=== PATIENT | male | born 1970 | race Caucasian/White ===

== ENCOUNTER 2017-05-07 01:15 | Emergency (ER) | payer SELFPAY ==
[~2017-05-07] VITALS: Ht 175.3 cm; Wt 72.6 kg
[~2017-05-07 01:15] MED LIST: CEPHALEXIN500 MG PO; NORCO 5-325 TA1 EACH PO
[2017-05-07] MEDS ORDERED: BACTRIM DS TAB1 EACH PO (01:34)
== END 2017-05-07 01:41 | disposition home or self-care (01) ==
LOC: ED 01:15
DX: L03.116 Cellulitis of left lower limb (principal); F17.200 Nicotine dependence, unspecified, uncomplicated
CPT/HCPCS: 99283

== ENCOUNTER 2019-12-04 07:39 | Day surgery (SDC) | payer OTHER ==
[~2019-12-04] VITALS: Ht 175.3 cm; Wt 72.1 kg
[~2019-12-04 07:39] MED LIST changes: +BACTRIM DS TAB1 EACH PO
--- NOTE | 2019-12-04 09:11 | NUR ---
12/04/19 0911 Shauna Wood 0905- PT ARRIVES TO PACU AROUSABLE TO VERBAL STIMULI, PT FALLS INSTANTLY BACK TO SLEEP WHEN NOT BEING TALKED TO. RESP EVEN AND UNLABORED. OXYGEN SAT HIGH 90'S TO 100% ON 3L VIA NC.
--- NOTE | 2019-12-04 11:58 | OR ---
[facility] [address], [place] [address] Signed DATE OF OPERATION: 12/04/2019 SURGEON: Ra Anderson MD PREOPERATIVE DIAGNOSIS: Paternal grandfather with colon cancer, age 45. POSTOPERATIVE DIAGNOSES: 1. 5 mm polyp at 32 cm. 2. Minimal sigmoid diverticulosis. PROCEDURE: Colonoscopy with hot biopsy. ESTIMATED BLOOD LOSS: None. INDICATIONS: Daniel is a 49-year-old gentleman asked to see me for his initial colonoscopy. He explained that his paternal grandfather was diagnosed and of colon cancer at age 45. Daniel has no lower GI complaints. There are no other family members with colon cancer or polyps other than his grandfather. In the office, I gave Daniel a booklet on colonoscopy. He understands the nature of the test along with its risks including, but not limited to gas bloating, crampy abdominal pain, bleeding, perforation requiring surgery, and missed diagnosis. He also understands the need for IV conscious sedation. He had expressed understanding and wished to proceed. PROCEDURE NOTE: Daniel was taken into our endoscopy suite and placed in the left lateral decubitus position. He was given IV sedation with 9 mg of Versed and 200 mcg of fentanyl. A digital rectal exam was then performed. He definitely has more prominence to the prostate on the left than on the right. He might review that with his primary care provider. The adult colonoscope was then introduced and advanced all around into the cecum under direct visualization of the camera without difficulty. His prep was quite good. The scope was slowly withdrawn. We could easily see the appendiceal orifice and the ileocecal valve. We took pictures throughout for photodocumentation. He had just a few tiny diverticula in his sigmoid colon. They were quite small, few in number, and scattered about. At 32 cm, he had a 5 mm polyp. This was easily removed with the help of the hot biopsy forceps. The rectum itself was unremarkable. Upon retroflexion of scope, there was no additional pathology noted above the anal canal. After this, the Electronically Signed By: RA ANDERSON MD 12/04/19 1158 PATIENT NAME: DANIEL ZAPATA OPERATIVE REPORT DATE OF : 66 REPORT #: [id number] PHYSICIAN: RA ANDERSON MD PCP: DEBORAH MARTINEZ REPORT IS CONFIDENTIAL AND NOT TO BE RELEASED WITHOUT AUTHORIZATION [address] [address] Signed gas was suctioned out and the colonoscope removed. Daniel tolerated the procedure quite well. RECOMMENDATIONS: I will see Daniel back in my office in 7 to 14 days to review his results. He might review his prostate exam with his primary care provider. MD AIYANA Guerrier/ANYAL /[id number] cc: MD Ra Gill MD Copies: GEORGE REY DMD, ANDREW L MD ~ Electronically Signed By: RA ANDERSON MD 12/04/19 1158 PATIENT NAME: DANIEL ZAPATA KHALIDA OPERATIVE REPORT DATE OF : 66 REPORT #: [id number] PHYSICIAN: RA ANDERSON MD PCP: DEBORAH MARTINEZ REPORT IS CONFIDENTIAL AND NOT TO BE RELEASED WITHOUT AUTHORIZATION
--- NOTE | 2019-12-05 16:01 | PATH ---
[facility] [address], [place] [address] Signed SPECIMEN(S): A COLON POLYP AT 32 CM SPECIMEN SOURCE: A. COLON POLYP AT 32 CM CLINICAL HISTORY: Screening. Post op: Polyp, diverticulosis. MICROSCOPIC DESCRIPTION: Histologic sections of all submitted blocks are examined by light microscopy. These findings, together with the gross examination, support the pathologic diagnosis. FINAL PATHOLOGIC DIAGNOSIS: Colon, polyp at 32 cm, polypectomy: - Fragments of tubular adenoma(s). - Negative for high-grade dysplasia or malignancy. NAL:cml:C2NR GROSS DESCRIPTION: The specimen, labeled "TH, colon polyps at 32 cm," is received in formalin and consists of two yanez soft tissue fragments that measure 0.3 and 0.4 cm in greatest dimension. The specimen is entirely submitted in cassette (A1). FB (under the direct supervision of a pathologist) The Gross Description was prepared using a voice recognition system. The report was reviewed for accuracy; however, sound-alike word errors, addition and/or deletions may occur. If there is any question about this report, please contact Client Services. PERFORMING LABORATORY: The technical component was performed by [employer] [address] [place] [address] (Fire Control Officer: Ayde Sanchez MD; CLIA# [id number]). Professional interpretation was performed by [employer], [address] [address] (CLIA# [id number]). Diagnostician: Pamela Phelps MD Pathologist Electronically Signed 12/05/2019 PATIENT NAME: DANIEL ZAPATA PATHOLOGY DATE OF : 66 REPORT #: [id number] PHYSICIAN: KANU MARES PCP: DEBORAH MARTINEZ REPORT IS CONFIDENTIAL AND NOT TO BE RELEASED WITHOUT AUTHORIZATION [address] [address] Signed Copies: ~ PATIENT NAME: DANIEL ZAPATA PATHOLOGY DATE OF : 66 REPORT #: [id number] PHYSICIAN: KANU PATHOLOGY PCP: DEBORAH MARTINEZ REPORT IS CONFIDENTIAL AND NOT TO BE RELEASED WITHOUT AUTHORIZATION
== END 2019-12-04 10:10 | disposition home or self-care (01) ==
LOC: OPS 07:39 → DS 07:39 → EDBD 07:39 → OPS 09:00
PROVIDERS: Colon & Rectal Surgery
PROC: 0DBE8ZZ Excision of Large Intestine, Via Natural or Artificial Opening Endoscopic (ICD-10-PCS; principal; 2019-12-04 09:00)
DX: Z12.11 Encounter for screening for malignant neoplasm of colon (principal); D12.6 Benign neoplasm of colon, unspecified; K57.30 Diverticulosis of large intestine without perforation or abscess without bleeding; Z80.0 Family history of malignant neoplasm of digestive organs
CPT/HCPCS: 99153; G0500; J2250; J3010; J7121

== ENCOUNTER 2025-07-26 20:46 | Emergency (ER) | payer OTHER ==
[~2025-07-26] VITALS: Ht 175.3 cm; Wt 74.0 kg
--- OUTSIDE RECORDS SUMMARY | 2025-07-26 20:53 | XMS ---
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 ERichard VISIT COUNT (12 MO.) Jodie Ramírez TOTAL 1 NOTE: Visits indicate total known visits. ED/UCC VISIT TRACKING (12 MO.) 07/26/2025 20:47 J[facility] Pavon OR TYPE: Emergency COMPLAINT: - EYE ISSUE INPATIENT VISIT TRACKING (12 MO.) No inpatient visits to display in this time frame [email or web address]
[2025-07-26] MEDS ORDERED: MAXITROL EYE DRO5 ML OPTH (21:25)
[2025-07-26] MEDS ORDERED: NEOMYCIN/POLYMYXIN/DEXAMETH OPTH SUSPENSION BOTTLE OS ONE (21:30)
[2025-07-26 21:35] VITALS: BP 126/88
== END 2025-07-26 21:36 | disposition home or self-care (01) ==
LOC: ED 20:46
DX: H10.9 Unspecified conjunctivitis (principal); F17.200 Nicotine dependence, unspecified, uncomplicated
CPT/HCPCS: 99283